=== PATIENT | female | born 1970 | race Caucasian/White ===

== ENCOUNTER 2018-03-21 23:34 | Inpatient (IN) | payer BC ==
[2018-03-21] MEDS ORDERED: KETOROLAC 30 MG/ML INJ ONE (23:56)
[2018-03-21] MEDS ORDERED: ONDANSETRON 4 MG/2 ML VIAL ONE (23:56)
[2018-03-21] MEDS ORDERED: NA CHLORIDE 0.9% 1,000 ML ONE (23:57)
[2018-03-22 00:08] LABS: Absolute Lymphocytes (CBC) 3.6 K/uL (0.7-4.9); Absolute Monocytes 1.3 K/uL (0.1-1.3); Absolute Neutrophil 10.1 K/uL (1.8-8.0); Basophils % 0.4 % (0-1.3); Eosinophils % 1.5 % (0-4.4); Hematocrit 40.5 % (36.0-45.0); Lymphocytes % 23.3 % (15.3-44.8); MCH 29.2 pg (27.0-35.0); MCV 83.6 fL (80-100); MPV 9.4 fL (7.6-11.3); Monocytes % 8.3 % (3.3-12.3); RBC Red Blood Cell Count 4.85 M/uL (3.86-4.86)
[2018-03-22 01:02] LABS: Albumin 3.5 g/dL (3.4-5.0); Bilirubin Direct 0.5 mg/dL (0-0.2); Bilirubin Total 0.7 mg/dL (0.2-1.0); Potassium 3.2 mmol/L (3.5-5.1); Protein, Total 7.6 g/dL (6.4-8.2)
[2018-03-22 01:35] LABS: Urine Bacteria <20 /HPF (<20); Urine Culture Reflex Order NOT NEEDED; Urine Mucus LIGHT /HPF (NONE SEEN); Urine RBC NONE SEEN /HPF (NONE SEEN)
[2018-03-22] MEDS ORDERED: NA CHLORIDE 0.9% 1,000 ML ONE (01:42)
[2018-03-22] MEDS ORDERED: FENTANYL CITR 100 MCG/2 ML ONE (01:42)
[2018-03-22] MEDS ORDERED: KCL 20 MEQ/100 mL IVPB 20 MEQ/100 ML BAG IV ONE (02:31)
[2018-03-22 03:13] LABS: Urine Blood NEGATIVE (NEG); Urine Glucose NEGATIVE (NEG); Urine Protein NEGATIVE (NEG)
--- NOTE | 2018-03-22 03:16 | P.HP ---
Certification for Inpatient Patient admitted to: Inpatient With expected LOS: >2 Midnights Practitioner: I am a practitioner with admitting privileges, knowledge of patient current condition, hospital course, and medical plan of care. Services: Services provided to patient in accordance with Admission requirements found in Title 42 Section 412.3 of the Code of Federal Regulations Patient History Date of Service: 03/22/18 Reason for admission: Acute galstones pancreatitis History of Present Illness: Ms Lewis is a 47-year-old woman with history of hypertension, cholelithiasis, who in December was seen by Dr. Douglas who was planning to do a cholecystectomy, however due to family problems, the surgery was postponed. The patient did not have follow-up in the meantime. Last night she start having severe abdominal pain localizing in the epigastric area radiating to bilateral upper quadrant, 8/ 10 of intensity, associated with nausea vomiting. She denied any fever or chills. Laboratory work significantly abnormal, lipase 440K, leukocytosis, hypokalemia and abnormal liver enzymes. CT abdomen and pelvis is done but the report is pending. Allergies Penicillins Allergy (Verified 12/24/17 09:16) Anaphylaxis Home medications list reviewed: Yes Home Medications: Amlodipine Besylate 10 mg PO [id number] 12/24/17 Metoprolol Succinate [Toprol Xl] 25 mg PO [id number] 12/24/17 - Past Medical/Surgical History -: Hypertension -: Obesity Past Surgical History: Reviewed- Non-Contributory - Family History Family History: Reviewed- Non-Contributory - Social History Smoking Status: Never smoker Alcohol use: No CD- Drugs: No Place of Residence: Home Review of Systems 10-point ROS is otherwise unremarkable Physical Examination - Physical Exam General: Alert, In no apparent distress HEENT: Atraumatic, PERRLA, Mucous membr. moist/pink, EOMI, Sclerae nonicteric Neck: Supple, 2+ carotid pulse no bruit, No LAD, Without JVD or thyroid abnormality Respiratory: Clear to auscultation bilaterally, Normal air movement Cardiovascular: Regular rate/rhythm, Normal S1 S2 Gastrointestinal: Normal bowel sounds, Tenderness (Bilateral upper quadrant) Musculoskeletal: No tenderness Integumentary: No rashes Neurological: Normal speech, Normal strength at 5/5 x4 extr, Normal tone, Normal affect Lymphatics: No axilla or inguinal lymphadenopathy - Studies Laboratory Data (last 24 hrs) 03/21/18 23:55: Creatinine 1.00 03/21/18 23:55: WBC 15.3 H, Hgb 14.2, Hct 40.5, Plt Count 346 03/21/18 23:55: Sodium 140, Potassium 3.2 L, BUN 16, Creatinine 1.10, Glucose 220 H, Total Bilirubin 0.7, AST 179 H, ALT 99 H, Alkaline Phosphatase 237 H, Lipase [id number] H Assessment and Plan - Plan Assessment: 1. Acute pancreatitis 2. Cholelithiasis 3. Cholecystitis 4. Obesity 5. Hypertension Plan: Will keep the patient NPO, start IV fluids and symptomatic medication for pain and nausea, empiric antibiotic treatment. Consult surgery team and GI specialist for ERCP. - Advance Directives Does patient have a Living Will: No Does patient have a Durable POA for Healthcare: No - Code Status/Comfort Care Code Status Assessed: Yes Code Status: Full Code
[2018-03-22] MEDS ORDERED: ACETAMINOPHEN 500 MG TAB PO PRN (03:28)
[2018-03-22] MEDS: NA CHLORIDE 0.9% 1,000 ML IV SCH ×2 (03:28→11:16)
--- NOTE | 2018-03-22 03:39 | ER ---
Nurse's Notes [facility] Name: Margaux Ruiz Age: 47 yrs Sex: Female : 1970 Arrival Date: 03/21/2018 Time: 23:36 Bed 25 Private MD: Brennan Oliver Diagnosis: Acute pancreatitis, unspecified;Cholelithiasis;Hypokalemia Presentation: 03/21 23:49 Presenting complaint: Patient states: Patient states pain to epigastric area that has lp1 worsened; Scheduled to have gallbladder removed by Dr. Douglas back in December but had to postpone surgery. Transition of care: patient was not received from another setting of care. Onset of symptoms was March 21, 2018. Risk Assessment: Do you want to hurt yourself or someone else? Patient reports no desire to harm self or others. Initial Sepsis Screen: Does the patient meet any 2 criteria? No. Patient's initial sepsis screen is negative. Does the patient have a suspected source of infection? No. Patient's initial sepsis screen is negative. Care prior to arrival: None. 23:49 Method Of Arrival: Wheelchair lp1 23:49 Acuity: ROSA 3 lp1 Triage Assessment: 23:51 General: Appears uncomfortable. GI: Pt is actively vomiting. lp1 23:53 Pain: Complains of pain in epigastric area Pain radiates to abdomen. lp1 SERVICES ADVISOR: 23:52 LMP N/A - Post-menopause lp1 Historical: - Allergies: 23:52 PENICILLINS; lp1 - Home Meds: 23:52 amlodipine 10 mg tab 1 tab once daily [Active]; metoprolol tartrate 25 mg Oral tab 1 lp1 tab once daily [Active]; - PMHx: 23:52 Hypertension; lp1 - PSHx: 23:52 ; Tubal ligation; lp1 - Immunization history:: Adult Immunizations up to date. - Social history:: Smoking status: Patient/guardian denies using tobacco. - Ebola Screening: : No symptoms or risks identified at this time. Screenin:52 Abuse screen: Denies threats or abuse. Denies injuries from another. Nutritional lp1 screening: No deficits noted. Tuberculosis screening: No symptoms or risk factors identified. Fall Risk None identified. Assessment: 03/22 00:12 General: Appears in no apparent distress. comfortable, Behavior is calm, cooperative. rv Pain: Complains of pain in abdomen. Neuro: Level of Consciousness is awake, alert, obeys commands, Oriented to person, place, time, situation. Cardiovascular: Capillary refill < 3 seconds. Respiratory: Airway is patent. GI: No signs and/or symptoms were reported involving the gastrointestinal system. GI: Pt is actively vomiting. : No signs and/or symptoms were reported regarding the genitourinary system. EENT: No signs and/or symptoms were reported regarding the EENT system. Derm: Skin is intact. 02:32 Reassessment: Patient appears in no apparent distress at this time. Patient and/or mg2 family updated on plan of care and expected duration. Pain level reassessed. Patient is alert, oriented x 3, equal unlabored respirations, skin warm/dry/pink. patient agreed the admission plan,. Vital Signs: 03/21 23:52 BP 154 / 84; Pulse 75; Resp 18; Temp 98.7(O); Pulse Ox 97% on R/A; Weight 117.93 kg; lp1 Height 5 ft. 2 in. (157.48 cm); Pain 10; 03/22 01:46 BP 160 / 72; Pulse 62; Resp 18; Pulse Ox 100% on R/A; mg2 02:31 BP 154 / 65; Pulse 68; Resp 18; Pulse Ox 100% on R/A; Pain 2/10; mg2 03/21 23:52 Body Mass Index 47.55 (117.93 kg, 157.48 cm) lp1 ED Course: 03/21 23:36 Patient arrived in ED. es 23:37 Brennan Oliver MD is Private Physician. es 23:47 [facility]unice Barillas [facility]C [facility] snw 23:47 Eddy Manuel MD is Attending Physician. snw 23:51 Triage completed. lp1 23:52 Arm band placed on. lp1 23:53 Patient has correct armband on for positive identification. Placed in gown. Bed in low lp1 position. Call light in reach. Pulse ox on. NIBP on. 23:55 Inserted saline lock: 20 gauge in right antecubital area, using aseptic technique. rv 23:56 Phoenix Mendes RN is Primary Nurse. mg2 03/22 01:35 Marcell Paul MD is Hospitalizing Provider. snw 01:[address] via wheelchair. kw1 02:25 CT completed. Patient tolerated procedure well. Patient moved back from CT. kw1 02:32 No provider procedures requiring assistance completed. Patient admitted, IV remains in mg2 place. Administered Medications: 03/21 23:55 Drug: NS 0.9% 1000 ml Route: IV; Rate: 125 ml/hr; Site: right antecubital; rv 03/22 03:14 Follow up: IV Status: Infusion continued upon admission lp1 03/21 23:55 Drug: TORadol 30 mg Route: IVP; Site: left antecubital; rv 03/22 00:59 Follow up: Response: No adverse reaction; Marked relief of symptoms mg2 01:45 Drug: fentaNYL (PF) 50 mcg Route: IVP; Site: right antecubital; mg2 02:30 Follow up: Response: No adverse reaction; Marked relief of symptoms mg2 01:46 Drug: NS 0.9% 1000 ml Route: IV; Rate: 1 bolus; Site: right antecubital; mg2 03:17 Follow up: IV Status: Infusion continued upon admission lp1 02:30 Drug: Potassium Chloride 20 mEq Route: IV; Rate: calculated rate; Site: right mg2 antecubital; 03:15 Follow up: IV Status: Infusion continued upon admission lp1 Outcome: 01:36 Decision to Hospitalize by Provider. snw 03:11 Condition: stable lp1 03:11 Instructed on the need for transfer. 03:16 Admitted to Med/surg via wheelchair, room 215, with chart, Report called to Ebony Santa RN 03:39 Patient left the ED. lp1 Signatures: Eunice Barillas, AIR/OCEAN EXPORT CLERK-C AIR/OCEAN EXPORT CLERK-CsnStephanie Huffman Laura RN RN lp1 Deysi Laguna kw1 Phoenix Mendes RN RN mg2 Akash Jo RN RN rv
--- NOTE | 2018-03-22 03:39 | EDPHYS ---
Physician Documentation [facility] Name: Margaux Ruiz Age: 47 yrs Sex: Female : 1970 Arrival Date: 03/21/2018 Time: 23:36 Bed 25 Private MD: Brennan Oliver ED Physician Eddy Manuel HPI: 03/22 00:07 This 47 yrs old Female presents to ER via Wheelchair with complaints of ABD snw PAIN GB ATTACK. 00:07 Onset: The symptoms/episode began/occurred suddenly, today. Associated signs and snw symptoms: Pertinent positives: abdominal pain, vomiting. The patient has experienced similar episodes in the past. The patient has not recently seen a physician, has seen Dr. Douglas for same s/s in the past. SUPERVISOR CLAIMS: 03/21 23:52 LMP N/A - Post-menopause lp1 Historical: - Allergies: 23:52 PENICILLINS; lp1 - Home Meds: 23:52 amlodipine 10 mg tab 1 tab once daily [Active]; metoprolol tartrate 25 mg Oral tab 1 lp1 tab once daily [Active]; - PMHx: 23:52 Hypertension; lp1 - PSHx: 23:52 ; Tubal ligation; lp1 - Immunization history:: Adult Immunizations up to date. - Social history:: Smoking status: Patient/guardian denies using tobacco. - Ebola Screening: : No symptoms or risks identified at this time. ROS: 03/22 00:06 Constitutional: Negative for fever, chills, and weight loss, Eyes: Negative for injury, snw pain, redness, and discharge, ENT: Negative for injury, pain, and discharge, Neck: Negative for injury, pain, and swelling, Cardiovascular: Negative for chest pain, palpitations, and edema, Respiratory: Negative for shortness of breath, cough, wheezing, and pleuritic chest pain, Abdomen/GI: Positive for abdominal pain, nausea, vomiting, negative for diarrhea, and constipation, Back: Negative for injury and pain, : Negative for injury, bleeding, discharge, and swelling, MS/Extremity: Negative for injury and deformity, Skin: Negative for injury, rash, and discoloration, Neuro: Negative for headache, weakness, numbness, tingling, and seizure, Psych: Negative for depression, anxiety, suicide ideation, homicidal ideation, and hallucinations. Exam: 00:06 Constitutional: This is a well developed, well nourished patient who is awake, alert, snw and in no acute distress. Head/Face: Normocephalic, atraumatic. Eyes: Pupils equal round and reactive to light, extra-ocular motions intact. Lids and lashes normal. Conjunctiva and sclera are non-icteric and not injected. Cornea within normal limits. Periorbital areas with no swelling, redness, or edema. ENT: Nares patent. No nasal discharge, no septal abnormalities noted. Tympanic membranes are normal and external auditory canals are clear. Oropharynx with no redness, swelling, or masses, exudates, or evidence of obstruction, uvula midline. Mucous membranes moist. Neck: Trachea midline, no thyromegaly or masses palpated, and no cervical lymphadenopathy. Supple, full range of motion without nuchal rigidity, or vertebral point tenderness. No Meningismus. Chest/axilla: Normal chest wall appearance and motion. Nontender with no deformity. No lesions are appreciated. Cardiovascular: Regular rate and rhythm with a normal S1 and S2. No gallops, murmurs, or rubs. Normal PMI, no JVD. No pulse deficits. Respiratory: Lungs have equal breath sounds bilaterally, clear to auscultation and percussion. No rales, rhonchi or wheezes noted. No increased work of breathing, no retractions or nasal flaring. Back: No spinal tenderness. No costovertebral tenderness. Full range of motion. Skin: Warm, dry with normal turgor. Normal color with no rashes, no lesions, and no evidence of cellulitis. MS/ Extremity: Pulses equal, no cyanosis. Neurovascular intact. Full, normal range of motion. Neuro: Awake and alert, GCS 15, oriented to person, place, time, and situation. Cranial nerves II-XII grossly intact. Motor strength 5/5 in all extremities. Sensory grossly intact. Cerebellar exam normal. Normal gait. Psych: Awake, alert, with orientation to person, place and time. Behavior, mood, and affect are within normal limits. 00:06 Abdomen/GI: Inspection: obese Bowel sounds: normal, Palpation: moderate abdominal tenderness, in all quadrants. Vital Signs: 03/21 23:52 BP 154 / 84; Pulse 75; Resp 18; Temp 98.7(O); Pulse Ox 97% on R/A; Weight 117.93 kg; lp1 Height 5 ft. 2 in. (157.48 cm); Pain 04/13; 03/22 01:46 BP 160 / 72; Pulse 62; Resp 18; Pulse Ox 100% on R/A; mg2 02:31 BP 154 / 65; Pulse 68; Resp 18; Pulse Ox 100% on R/A; Pain 2/10; mg2 03/21 23:52 Body Mass Index 47.55 (117.93 kg, 157.48 cm) lp1 MDM: 00:02 Patient medically screened. snw 01:34 Data reviewed: vital signs, nurses notes. Data interpreted: Pulse oximetry: on room air snw is 97 %. Interpretation: normal. Counseling: I had a detailed discussion with the patient and/or guardian regarding: the historical points, exam findings, and any diagnostic results supporting the discharge/admit diagnosis, the presence of at least one elevated blood pressure reading (>120/80) during this emergency department visit, lab results, radiology results, the need for further work-up and treatment in the hospital. Physician consultation: Marcell Paul MD. Physician consultation: was called at 01:35, was contacted at 01:35, regarding admission, to the medical/surgical unit. 03/21 23:47 Order name: Basic Metabolic Panel; Complete Time: 01:27 snw 03/21 23:47 Order name: CBC with Diff; Complete Time: 00:12 snw 03/21 23:47 Order name: Creatinine for Radiology; Complete Time: 00:29 snw 03/21 23:47 Order name: Hepatic Function; Complete Time: 01:27 snw 03/21 23:47 Order name: Lipase; Complete Time: 01:27 snw 03/21 23:48 Order name: Urine Microscopic Only; Complete Time: 01:36 snw 03/22 01:22 Order name: Urine Dipstick--Ancillary (enter results) [facility] 03/22 01:22 Order name: Urine --Ancillary (enter results) [facility] 03/22 01:27 Order name: CT Abd/Pelvis - W/Contrast snw 03/21 23:48 Order name: IV Saline Lock; Complete Time: 23:56 snw 03/21 23:48 Order name: Labs collected and sent; Complete Time: 23:56 snw 03/21 23:48 Order name: Urine Dipstick-Ancillary (obtain specimen); Complete Time: 01:00 snw Administered Medications: 03/21 23:55 Drug: NS 0.9% 1000 ml Route: IV; Rate: 125 ml/hr; Site: right antecubital; rv 03/22 03:14 Follow up: IV Status: Infusion continued upon admission lp1 03/21 23:55 Drug: TORadol 30 mg Route: IVP; Site: left antecubital; rv 03/22 00:59 Follow up: Response: No adverse reaction; Marked relief of symptoms mg2 01:45 Drug: fentaNYL (PF) 50 mcg Route: IVP; Site: right antecubital; mg2 02:30 Follow up: Response: No adverse reaction; Marked relief of symptoms mg2 01:46 Drug: NS 0.9% 1000 ml Route: IV; Rate: 1 bolus; Site: right antecubital; mg2 03:17 Follow up: IV Status: Infusion continued upon admission lp1 02:30 Drug: Potassium Chloride 20 mEq Route: IV; Rate: calculated rate; Site: right mg2 antecubital; 03:15 Follow up: IV Status: Infusion continued upon admission lp1 Disposition: 06:07 Co-signature as Attending Physician, Eddy Manuel MD I agree with the assessment and tw4 plan of care. Attestation: The patient's history, exam findings, diagnostics, and a summary of any interventions or procedures was reviewed in detail with Eunice CANTU. Disposition: 03/22/18 01:36 Hospitalization ordered by Marcell Paul for Inpatient Admission. Preliminary diagnosis are Acute pancreatitis, unspecified, Cholelithiasis, Hypokalemia. - Bed requested for Telemetry/MedSurg (Inpatient). - Status is Inpatient Admission. lp1 - Condition is Stable. - Problem is an acute exacerbation. - Symptoms are unchanged. UTI on Admission? No Signatures: Dispatcher [employer] EDCT Shirley Pfeiffer RN RN Eunice Barillas FNP-C FNP-Csnw Shila Yo RN RN [facility] Eddy Manuel MD MD tw4 Phoenix Mendes RN RN [facility] Akash Jo RN RN rv Corrections: (The following items were deleted from the chart) 01:37 01:36 Hospitalization Ordered by Marcell Paul MD for Inpatient Admission. Preliminary snw diagnosis is Acute pancreatitis, unspecified; Cholelithiasis. Bed requested for Telemetry/MedSurg (Inpatient). Status is Inpatient Admission. Condition is Stable. Problem is an acute exacerbation. Symptoms are unchanged. UTI on Admission? No. snw 02:02 01:37 03/22/2018 01:36 Hospitalization Ordered by Marcell Paul MD for Inpatient mw Admission. Preliminary diagnosis is Acute pancreatitis, unspecified; Cholelithiasis; Hypokalemia. Bed requested for Telemetry/MedSurg (Inpatient). Status is Inpatient Admission. Condition is Stable. Problem is an acute exacerbation. Symptoms are unchanged. UTI on Admission? No. snw 03:39 02:02 03/22/2018 01:36 Hospitalization Ordered by Marcell Paul MD for Inpatient lp1 Admission. Preliminary diagnosis is Acute pancreatitis, unspecified; Cholelithiasis; Hypokalemia. Bed requested for Telemetry/MedSurg (Inpatient). Status is Inpatient Admission. Condition is Stable. Problem is an acute exacerbation. Symptoms are unchanged. UTI on Admission? No. mw
[2018-03-22] MEDS: ONDANSETRON 4 MG/2 ML VIAL IV PRN ×2 (04:16→10:13)
[2018-03-22] MEDS: KETOROLAC 30 MG/ML INJ IV PRN ×2 (05:51→14:37)
[2018-03-22 06:13] LABS: Urine Appearance CLEAR; Urine Bilirubin NEGATIVE (NEG); Urine Blood NEGATIVE (NEG); Urine Color YELLOW; Urine Glucose NEGATIVE (NEG); Urine Microscopic Reflex NO UMIC; Urine Protein NEGATIVE (NEG); Urine Specific Gravity >=1.030 (1.005-1.030); Urine pH 7.5 (5.0-7.0)
--- NOTE | 2018-03-22 08:36 | RAD REPORT ---
EXAM DESCRIPTION: CT - Abdomen Pelvis W Contrast - 03/22/2018 5:49 am CLINICAL HISTORY: Abdominal pain/epigastric pain COMPARISON: none. TECHNIQUE: Computed axial tomography of the abdomen pelvis was obtained. 100 cc Isovue-300 was admin istered intravenously. Oral contrast was not requested which limits evaluation of bowel. Preliminary report was generated by [email or web address] and reviewed prior to this dictation All CT scans are performed using dose optimization technique as appropriate and may include automated exposure control or mA/KV adjustment according to patient size. FINDINGS: Multiple gallstones are present without gallbladder wall thickening. Pancreas is normal size. It is inhomogeneous. Stranding is present within the peripancreatic fat. Sma ll to moderate amount of fluid is present within the anterior pararenal spaces bilaterally. A pseudoc yst is not seen. Spleen, adrenals and right kidney are unremarkable. 5 millimeter nonobstructing left renal calculus is seen. The appendix is normal. There is no evidence of diverticulitis. An adnexal mass is not noted. Small umbilical hernia is present. There is no evidence of diverticulitis. IMPRESSION: Moderate pancreatitis
[2018-03-22] MEDS ORDERED: METRONIDAZOLE 500mg IVPB 500 MG/100 ML BAG IV SCH (09:00)
[2018-03-22] MEDS ORDERED: CIPROFLOXACIN 400mg IV 400 MG/200 ML BAG IV SCH (09:00)
[2018-03-22 09:03] LABS: Potassium 4.7 mmol/L (3.5-5.1)
--- NOTE | 2018-03-22 09:08 | RAD REPORT ---
EXAM DESCRIPTION: MRICholangiogram03/22/2018 7:57 am CLINICAL HISTORY: Abdominal pain COMPARISON: 03/22/2018 cat scan TECHNIQUE: Magnetic resonance cholangiogram was performed. 3D MIP reconstruction was performed FINDINGS: Multiple gallstones are present. The gallbladder wall is thickened. The biliary tree is normal caliber without a filling defect. Moderate pancreatitis is again noted. The pancreatic duct is normal caliber IMPRESSION: Cholelithiasis without evidence of cholecystitis A stone within the common bile duct is not seen
[2018-03-22] MEDS ORDERED: MORPHINE 2 MG/ML SYR IV PRN (09:29)
[2018-03-22] MEDS ORDERED: HYDRALAZINE HCL 20 MG/ML VIAL IV PRN (10:26)
--- NOTE | 2018-03-22 13:27 | P.DS ---
Admission Date: 03/22/18 Discharge Date: 03/22/18 Primary Care Provider: Dr. Oliver Disposition: TRANSFER TO [facility] Discharge Condition: GOOD Reason for Admission: Acute gallstone pancreatitis Consultations: Surgery-Dr. Douglas GI-Dr. Heaton Procedures: CT scan: COMPARISON: none. TECHNIQUE: Computed axial tomography of the abdomen pelvis was obtained. 100 cc Isovue-300 was administered intravenously. Oral contrast was not requested which limits evaluation of bowel. Preliminary report was generated by [employer] and reviewed prior to this dictation All CT scans are performed using dose optimization technique as appropriate and may include automated exposure control or mA/KV adjustment according to patient size. FINDINGS: Multiple gallstones are present without gallbladder wall thickening. Pancreas is normal size. It is inhomogeneous. Stranding is present within the peripancreatic fat. Small to moderate amount of fluid is present within the anterior pararenal spaces bilaterally. A pseudocyst is not seen. Spleen, adrenals and right kidney are unremarkable. 5 millimeter nonobstructing left renal calculus is seen. The appendix is normal. There is no evidence of diverticulitis. An adnexal mass is not noted. Small umbilical hernia is present. There is no evidence of diverticulitis. IMPRESSION: Moderate pancreatitis MRCP: COMPARISON: 03/22/2018 cat scan TECHNIQUE: Magnetic resonance cholangiogram was performed. 3D MIP reconstruction was performed FINDINGS: Multiple gallstones are present. The gallbladder wall is thickened. The biliary tree is normal caliber without a filling defect. Moderate pancreatitis is again noted. The pancreatic duct is normal caliber IMPRESSION: Cholelithiasis without evidence of cholecystitis A stone within the common bile duct is not seen Medical problem list: Abdominal pain, nausea and vomiting secondary to gallstone pancreatitis Elevated liver function secondary to above Hypertension Hypokalemia Acute renal injury secondary to Dehydration Brief History of Present Illness: 47-year-old female presented emergency room with abdominal pain mainly to the right upper quadrant and epigastric region with nausea and vomiting. Patient has history of cholelithiasis. She was to have an outpatient cholecystectomy about a month ago. She was not able to follow up with surgery due to family circumstances. The patient presented to the emergency room with increasing pain. Patient found to have elevated liver function tests including lipase of [id number]. Patient was admitted for suspected gallstone pancreatitis. Hospital Course: Patient presented with abdominal pain, nausea and vomiting secondary to gallstone pancreatitis. Patient was evaluated and treated. Patient seen by surgery and GI. CT abdomen showed multiple gallstones. Stranding present to the kryee pancreatic fat. Small moderate fluid was present to the anterior para renal space is bilaterally. Appendix was normal. No diverticulitis. MRCP showed cholelithiasis without cholecystitis. Patient had elevated lipase with elevated liver function. Case discussed at length with surgery and GI. Surgery requires ERCP for further evaluation. Since GI is not able to proceed with ERCP here locally, it was recommended to transfer the patient to a higher level of care center. Case discussed at length with accepting physicians( Hospitalist/GI) at [facility]. Patient accepted for transfer. Patient will continue with current IV fluids and pain control. Patient be further assessed by GI with possible surgical intervention. Patient with hypertension. Will continue with hydralazine IV at this time. Patient with acute renal injury secondary to dehydration. Will continue with IV fluids. Electrolytes to be monitored and replaced. Vital Signs/Physical Exam: Temp Pulse Resp BP Pulse Ox 97.7 F 78 18 188/88 H 95 03/22/18 08:00 03/22/18 08:00 03/22/18 08:00 03/22/18 08:00 03/22/18 08:00 General: Alert, In no apparent distress, Oriented x3, Cooperative HEENT: Atraumatic Neck: Supple Respiratory: Clear to auscultation bilaterally, Normal air movement Cardiovascular: Normal pulses, Regular rate/rhythm Gastrointestinal: Normal bowel sounds, No masses, No rebound, No guarding, Tenderness (Right upper quadrant abdominal pain) Musculoskeletal: No erythema, No tenderness, No warmth Integumentary: No erythema, No warmth, No cyanosis Neurological: Normal speech, Normal strength at 5/5 x4 extr, Normal tone, Normal affect Laboratory Data at Discharge: WBC 15.3 K/uL (4.3-10.9) H 03/21/18 23:55 Hgb 14.2 g/dL (12.0-15.0) 03/21/18 23:55 Hct 40.5 % (36.0-45.0) 03/21/18 23:55 Plt Count 346 K/uL (152-406) 03/21/18 23:55 Sodium 140 mmol/L (136-145) 03/21/18 23:55 Potassium 4.7 mmol/L (3.5-5.1) 03/22/18 08:32 BUN 16 mg/dL (7-18) 03/21/18 23:55 Creatinine 1.10 mg/dL (0.55-1.3) 03/21/18 23:55 Glucose 220 mg/dL (74-106) H 03/21/18 23:55 Magnesium 2.0 mg/dL (1.8-2.4) 03/22/18 08:32 Total Bilirubin 0.7 mg/dL (0.2-1.0) 03/21/18 23:55 AST 179 U/L (15-37) H 03/21/18 23:55 ALT 99 U/L (12-78) H 03/21/18 23:55 Alkaline Phosphatase 237 U/L (45-117) H 03/21/18 23:55 Lipase 126242 U/L (73-393) H 03/21/18 23:55 Home Medications: Amlodipine Besylate 10 mg PO DAILY 12/24/17 Metoprolol Succinate [Toprol Xl] 25 mg PO DAILY 12/24/17 Patient Discharge Instructions: 1. Patient be transferred to [facility]. 2. Patient presented with abdominal pain, nausea and vomiting secondary to gallstone pancreatitis. Patient was evaluated and treated. Patient seen by surgery and GI. CT abdomen showed multiple gallstones. Stranding present to the kyree pancreatic fat. Small moderate fluid was present to the anterior para renal space is bilaterally. Appendix was normal. No diverticulitis. MRCP showed cholelithiasis without cholecystitis. Patient had elevated lipase with elevated liver function. Case discussed at length with surgery and GI. Surgery requires ERCP for further evaluation. Since GI is not able to proceed with ERCP here locally, it was recommended to transfer the patient to a higher level of care center. Case discussed at length with accepting physicians(Hospitalist/GI) at [facility]. Patient accepted for transfer. Patient will continue with current IV fluids and pain control. Patient be further assessed by GI with possible surgical intervention. 3. Patient with hypertension. Will continue with hydralazine IV at this time. 4. Patient with acute renal injury secondary to dehydration. Will continue with IV fluids. Electrolytes to be monitored and replaced. Diet: Patient NPO Activity: Ad john Time spent managing pt's care (in minutes): 55
--- NOTE | 2018-03-22 13:58 | CON ---
Date of Consultation: 03/22/2018 Brief History Of Present Illness: The patient is a 47-year-old female known to me from prior admissi on, who presents with a history of cholelithiasis. She was advised to have a cholecystectomy prior, but did not follow up for this procedure at that time and has been noncompliant with diet, eating Swe dish meat balls last evening and having sodas and being noncompliant with the gallbladder diet as rec ommended. She had no followup since my last seeing her approximately 3 months ago. She started havi ng severe abdominal pain located in the epigastric area, radiating through to her back and upper bila teral quadrants associated with nausea, vomiting. She had no fever, chills, or other associated comp laints. This felt similar to her last abdominal pain episode approximately 3 months ago. Only her p ain was significantly worse by her report. Past Medical History: Significant for hypertension, cholelithiasis, obesity. Past Surgical History: Significant for tubal ligation and . Allergies: PENICILLIN. Home Medications: Amlodipine, metoprolol. Social History: She denies smoking, alcohol, or recreational drug use. Review of Systems: A 10-point review of systems other than HPI, denies. Physical Examination: General: At the time of my examination, she is awake, alert, and oriented. HEENT: She is normocephalic. Her sclerae are anicteric. Her mucous membranes are moist. Oropharyn x is clear. She has poor dentition. Neck: Supple. No JVD. Chest: Normal expansion, excursion. Cardiovascular: Regular rate and rhythm. Pulmonary: Clear to auscultation bilaterally. Abdomen: Soft with positive epigastric and bilateral upper quadrant tenderness to palpation. No le ound. No guarding. No focal peritonitis. No Yuen Hdez or Girish signs. Negative Taylor sign. Extremities: No clubbing, cyanosis, edema, or tenderness. Integument: No rashes. Neurological: Normal speech. Skin: Warm and dry otherwise. Laboratory Data: Reveals a white blood cell count of 15.3, hemoglobin is 14.2 hematocrit of 40.5, ne utrophils normal at 66%, her platelets are 346. Her sodium is 140, potassium 4.7, chloride 107, carb on dioxide 28, BUN 16, creatinine 1.0, glucose is 220, magnesium 2.0, total bilirubin 0.7, direct com ponent 0.5, AST 179, ALT 99, alkaline phosphatase is elevated at 237. Lipase is 440,671. UA was neg ative including urine test. She had a CT scan performed of the abdomen and pelvis, which s howed evidence of acute pancreatitis, moderate-type pancreatitis. No pseudocyst noted. Gallbladder had stones. Otherwise, no significant findings to the gallbladder examination on imaging. There was no gallbladder wall thickening at that time. Assessment And Plan: This is a 47-year-old female who presents with evidence of pancreatitis, likely from gallstone pancreatitis. 1.IV fluid hydration. 2.Antibiotic coverage. 3.N.p.o. 4.Recommend GI consult. 5.MRCP ordered. 6.The patient requires cholecystectomy after pancreatitis resolves. I have explained the risks, cristal efits, alternatives of the above stated plan. The patient agrees to proceed as indicated. JAIME/JOVI Voice ID: [id number] Report ID: [id number]
== END 2018-03-22 15:25 | disposition short-term general hospital (02) | DRG 439 ==
LOC: ER 23:34 → ERHOLD 03-22 01:39 → 2ND 03-22 03:06
PROVIDERS: ADMIT Internal Medicine; ATTEND Internal Medicine
DX: K85.10 Biliary acute pancreatitis without necrosis or infection (principal); N17.9 Acute kidney failure, unspecified; E86.0 Dehydration; E87.6 Hypokalemia; I10 Essential (primary) hypertension; Z88.0 Allergy status to penicillin
CPT/HCPCS: 36415; 74177; 74181; 80048; 80076; 81003; 81015; 81025; 83690; 83735; 84132; 85025; 99285; J0360; J2270; J2405; J3010; J7030; Q9967

== ENCOUNTER 2023-04-30 11:58 | Emergency (ER) | payer BC ==
--- OUTSIDE RECORDS SUMMARY | 2023-04-30 12:04 | XMS REPORT | Continuity of Care Document ---
:1970 Author Organization [facility] t Address [address] [place] [address] [place] [id number] Care Team Providers Name Role Phone Oliver Brennan A Primary Care Physician Lab, Adc Fam Pob I Attending Clinician Unavailable Cindy Bee Attending Clinician CINDY PROCTOR Attending Clinician Unavailable Doctor Unassigned, [place] Attending Clinician Unavailable CARLOS DAVIS M.D. Attending Clinician Unavailable [facility] Attending Clinician Unavailable Betty Brush Attending Clinician NORMA SANABRIA Attending Clinician Unavailable Betty Brush Admitting Clinician NORMA SANABRIA Admitting Clinician Unavailable Payers Payer Name Policy Type Policy Number Effective Date Expiration Date S ource Problems Condition Condition Condition Status Onset Resolution Last Treating Co mments Source Name Details Category Date Date Treatment Clinician Date 2 WK POST 2 WK POST Diagnosis Active 2017-072018-05-13 Memoria PROCEDURE PROCEDURE 0- 15:36:00 l F/U F/U Active 00:00: Luca poole [address] [facility] F/U F/U Diagnosis Active 2017-072018-04-21 Mem oria Active 0 15:24:00 l 04/12/2018 00:00: Luca poole [address] R06.00 R06.00 Diagnosis Active 2018-04-21 Me moria DYSPNEA DYSPNEA 03-31 15:23:00 l Active 00:00: Jose 03/31/[address] [facility] NEW NEW Diagnosis Active 2017-2018-04-08 Mem oria PT/SWELLIN PT/SWELLIN 03-28 14:37:00 l G G 00:00: Jose EXTREMITIE EXTREMITIE 00 S/SELF S/SELF Active 03/28/2018 [facility] Acute Acute Disease Active [facility] pancreatit pancreatit 03-23 Joselin kes is due to is due to 00:00: Medi altaf calculus calculus 00 [facility] of common of common bile duct bile duct Dyspnea, Dyspnea, Problem 2018-12-01 Memoria unspecifie unspecifie 11:08:51 l d d Jose 12/01/2018 [facility] Acute Acute Problem 2018-12-01 Memor ia pancreatit pancreatit 11:08:51 l is without is without He rmann necrosis necrosis or or infection, infection, unspecifie unspecifie d d 12/01/2018 [facility] Chronic Chronic Problem 2018-11-08 M emoria periodonti periodonti 12:19:12 l tis, tis, [place] unspecifie unspecifie d d 11/08/2018 [facility] Nicotine Nicotine Problem 2018-11-08 Memoria dependence dependence 12:19:12 l , , Jose cigarettes cigarettes , , uncomplica uncomplica guanako guanako 11/08/2018 [facility] Personal Personal Problem 2018-12-01 Memoria history of history of 11:08:51 l nicotine nicotine Luca n dependence dependence 9 [facility], [place] Other Other Problem 2018-11-07 Memor ia chest pain chest pain 11:54:11 l 11/07/2018 Luca n [place] Unspecifie Unspecifi Problem 2018-11-07 Memoria d ed 11:54:11 l abnormalit abnormalit He rmann ies of ies of breathing breathing 11/07/2018 [place] Other Other Problem 2018-12-01 Memor ia specified specified 11:08:51 l soft soft [place] tissue tissue disorders disorders 12/01/2018 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 Allergy Allergy Problem 2018-10-16 Me ivania status to status to 13:42:33 l penicillin penicillin He rmann 9 [facility] Other long Other Problem 2018-11-15 M emoria term fdc 12:40:33 l (current) (current) Herm sunny drug drug therapy therapy 11/15/2018 [place] Disease of Disease Problem Active 2018-12-01 Memoria vein of vein 11:08:51 l (disorder) (disorder) He rmann Active Problem 12/01/2018 [facility], OPID [place] Dyspnea Dyspnea Problem Active 2018-12-01 Me ivania (finding) (finding) 11:08:51 l Active Jose Problem 12/01/2018 [facility], OPID [place] Hypertensi Hypertens Problem Active 2018-12-01 Memoria ve todd 11:08:51 l disorder, disorder, Herm sunny systemic systemic arterial arterial (disorder) (disorder) Active Problem 12/01/2018 [facility], [facility] [place] Pancreatit Pancreati Problem Active 2018-12-01 Memoria is tis 11:08:51 l (disorder) (disorder) He rmann Active Problem 12/01/2018 [facility], OPID [place] Periodonti Periodont Problem Active 2018-12-01 Memoria tis itis 11:08:51 l (disorder) (disorder) He rmann Active Problem 12/01/2018 [facility], OPID [place] Blood Blood Problem Active [facility] clotting clotting HL7.CCDAR2 Ph ysici disorder disorder ans Pain and Pain and Problem Active [facility] swelling swelling HL7.CCDAR2 Ph ysici of right of right ans lower lower extremity extremity Chronic Chronic Problem Active [facility] venous venous HL7.CCDAR2 Physic i insufficie insufficie an s ncy ncy History of Past Illness Condition Condition Condition Status Onset Resolution Last Treating Co mments Source Name Details Category Date Date Treatment Clinician Date Essential Essential Problem 2017-2018-12-01 2018-12-01 Memoria (primary) (primary) 1-16 11:08:51 11:08:51 l hypertensi hypertensi 04:34: He rmann on on 05/20/2018 12/01/2018 [facility], [place] Abnormal Abnormal Problem 2017-072018-11-15 2018-11-15 Memoria result of result of 07-05 12:40:33 12:40:33 l other other 04:15: Jose cardiovasc cardiovasc 11 bethany ular function function study study 05/05/2018 05/ 9 [place] Other Other Problem 2017-072018-11-08 2018-11-08 M emoria forms of forms of 024 12:19:12 12:19:12 l dyspnea dyspnea 03:35: Jose 04/27/2018 29 11/08/2018 [facility] Shortness Shortness Problem 2017-072018-11-07 2018-11-07 Memoria of breath of breath 0- 11:54:11 11:54:11 l 04/24/2018 02:46: Luca n 11/07/2018 43 [place] Edema, Edema, Problem 2017-072018-10-26 2018-10-26 Memoria unspecifie unspecifie 0-11 12:36:42 12:36:42 l d d 05:06: Jose 04/14/2018 07 10/26/2018 [facility], OPID [place] Allergies, Adverse Reactions, Alerts Allergy Allergy Status Severity Reaction(s) Onset Inactive Treating Comm ents Source Name Type Date Date Clinician Penicill Drug Active [facility] [place] penicill penicill Active Joshori a in in l Jose NO KNOWN Drug Active [facility] ALLERGIE Class ity of S [facility] Social History Social Habit Start Date Stop Date Quantity Comments Source Exposure to Not sure [facility] SARS-CoV-2 (event) Medica l Branch Social History 2018-03-29 2018-03-29 [facility] josefa 16:27:23 16:27:23 Sex Assigned At [address] Joselin kes Medical 00:00:00 00:00:00 [place] Smoking Status Start Date Stop Date Source Unknown if ever smoked [facility] Medications Ordered Filled Start Stop Current Ordering Indication Dosage Frequency Signature Comments Components Source Medication Medication Date Date Medication? Clinician (SIG) Name Name Sodium 2017-07 No 250 mL, Memoria Chloride 0-25 Infuse l 0.9% 17:00: Over: 1 [place] (Bolus) IV 00 hr, Route: IV, ONCALL, Priority: Routine, Dosing Weight 113.182 kg, Start date: 04/28/18 12:00:00 CDT, Duration: 1 doses or times Sodium 2017-07 No 750 mL, Memoria Chloride 0-25 Rate: 75 l 0.9% IV 750 16:22: ml/hr, Herm sunny mL 00 Infuse over: 10 hr, Route: IV, Dosing Weight 113.182 kg, Total Volume: 750, Start date: 04/28/18 11:22:00 CDT, Duration: 24 hr, Stop date: 04/29/18 11:21:00 CDT, 2.29, m2 ondansetron No 4 mg = 1 Me moria 4 mg oral 9-25 tab, PO, l tablet 16:27: PRN, PRN Jose 00 Nausea, # 3 tab, 0 Refill(s) acetaminoph No 1 tab =, Me moria en-codeine 9-25 PO, l #3 16:27: Bedtime, Jose 00 PRN Pain, # 30 tab, 0 Refill(s) amLODIPine Yes 10 mg = 1 Me moria 10 mg oral 9-25 tab, PO, l tablet 16:27: Daily, # [place] 00 90 tab, 1 Refill(s) Ciprofloxac No 500 mg = 1 Memoria in 500 MG 9-25 tab, PO, l Oral Tablet 16:27: Q12H, # 14 [place] [Cipro] 00 tab, 0 Refill(s) metoprolol Yes 0 Memoria succinate 9-25 Refill(s) l 25 mg oral 16:27: [place] capsule, 00 extended release Metronidazo No 500 mg = 1 Memoria le 500 MG 9-25 tab, PO, l Oral Tablet 16:27: Q8H, # 21 H ermann 00 tab, 0 Refill(s) metoprolol Yes 25mg QD Take [address] (TOPROL-XL) 9-22 by mouth Luke s 25 MG 24 hr 16:42: daily. Medi altaf tablet 50 Center amLODIPine 2018-0 Yes 10mg QD Take [address] (NORVASC) 9-22 by mouth [facility] 10 MG 16:42: daily. Medical tablet 50 Center Vital Signs Vital Name Observation Time Observation Value Comments Source BP Systolic 2018-06-20 140 mm[Hg] Location: [facility] Physicians 11:28:00 Position: Sitting BP Diastolic 2018-06-20 80 mm[Hg] Location: [facility] Physicians 11:28:00 Position: Sitting Heart Rate 2018-06-20 88 /min Location: L [facility] 11:28:00 Brachial Artery; Quality: Normal Weight 2018-05-13 [facility] Luca n 21:46:00 BMI Calculated 2018-05-13 [facility] sunny 21:46:00 Height 2018-05-13 157.48 cm [facility] Luca n 21:46:00 Heart Rate 2018-05-13 [facility] Luca n 21:46:00 Systolic (mm Hg) 2018-05-13 [facility] He rmann 21:46:00 Diastolic (mm Hg) 2018-05-13 [facility] H ermann 21:46:00 Temperature Oral 2018-05-13 97.0 F [facility] He rmann (F) 21:46:00 BMI Calculated 2018-04-28 [facility] sunny 15:26:00 Weight 2018-04-28 [facility] Luca n 15:26:00 Height 2018-04-28 160.02 cm [facility] Luca n 15:26:00 Respitory Rate 2018-04-28 [facility] sunny 15:12:00 Heart Rate 2018-04-28 [facility] Luca n 15:12:00 Temperature Oral 2018-04-28 97.6 F [facility] He rmann (F) 15:12:00 Systolic (mm Hg) 2018-04-28 [facility] rmann 15:12:00 Diastolic (mm Hg) 2018-04-28 [facility] H ermann 15:12:00 Diastolic (mm Hg) 2018-04-21 [facility] H ermann 20:38:00 Weight 2018-04-21 [facility] Luca n 20:38:00 Height 2018-04-21 157.48 cm [facility] Luca n 20:38:00 BMI Calculated 2018-04-21 [facility] sunny 20:38:00 Heart Rate 2018-04-21 [facility] Luca n 20:38:00 Temperature Oral 2018-04-21 97.1 F [facility] He rmann (F) 20:38:00 Systolic (mm Hg) 2018-04-21 [facility] Rohit rmann 20:38:00 Weight 2018-03-29 Maurilio Segovia n 16:25:00 BMI Calculated 2018-03-29 Maurilio Armas sunny 16:25:00 Height 2018-03-29 157.48 cm Maurilio Segovia n 16:25:00 Heart Rate 2018-03-29 Maurilio Segovia n 16:25:00 Temperature Oral 2018-03-29 97.4 F [facility] Rohit rmann (F) 16:25:00 Systolic (mm Hg) 2018-03-29 [facility] He rmann 16:25:00 Diastolic (mm Hg) 2018-03-29 [facility] Riaz ermann 16:25:00 Procedures Procedure Date / Time Performing Clinician Source Performed ASSIGNMENT OF BENEFITS 2021-02-02 16:26:04 [facility] Antithrombin III 2018-07-11 00:00:00 [facility] Antigen [H] Factor V Assay 2018-07-11 00:00:00 [facility] [LH] Factor V Leiden 2018-07-11 00:00:00 [facility] [QL] ANTIPHOSPHOLIPID 2018-07-11 00:00:00 [facility] ANTIBODY PANEL [QLH] CBC (INCLUDES 2018-07-11 00:00:00 [facility] DIFF/PLT) [QLH] C-REACTIVE PROTEIN 2018-07-11 00:00:00 [facility] [QLH] PROTEIN S, ANTIGEN 2018-07-11 00:00:00 [facility] [QLH] PROTHROMBIN TIME-INR 2018-07-11 00:00:00 [facility] CVRAD - Bilateral Lower 2018-06-20 00:00:00 [facility] Cornelio Lmt - [id number] Encounters Start End Encounter Admission Attending Care Care Encounter Source Date/Time Date/Time Type Type Clinicians Facility Department ID 2021-02-02 2021-02-02 Laboratory Lab, Adc Fam Pob I [facility] [id number]. [id number] [facility] 11:26:18 11:46:18 Only [employer] [id number] [facility]y of [place] [id number] Kermit as Professio [id number] Wy dical nal [address] 2021-02-02 2021-02-02 Outpatient R ESTHELA, [facility] [id number] Univers 11:20:00 11:20:00 CINDY ity of [facility] 2021-02-02 2021-02-02 Orders Doctor MIRA [id number] Univers 00:00:00 00:00:00 Only Unassigned, YESSI [id number] [facility] [id number] Kermit as [id number] [address] 2018-07-11 2018-07-11 App[id number] [place] 09:00:00 09:00:00 t; CARLOS DAVIS cic and Tiago GONZALEZ M.D. Vascular kush [facility] 2018-06-20 2018-06-20 Appointmen VASCULAR, [facility] [id number] [place] 10:30:00 10:30:00 t; [facility] VASCULAR, ans [facility] 2018-06-20 2018-06-20 Appointmen SUSAN, SANDRA [facility] [id number] [place] 09:45:00 09:45:00 t; CARLOS DAVIS, Lluvia Levy M.D. 2018-05-13 2018-05-14 Outpatient nullFlavo [id number] Memoria 21:29:00 05:59:00 r Shaunna 05 l [facility] 2018-05-13 2018-05-13 Outpatient Bre [facility] [id number] 15:29:00 23:59:00 ghe, 05 Betty Webb 2018-04-28 2018-04-28 [facility] [id number] Memoria 14:06:45 18:41:00 [facility] r [facility] 2018-04-28 2018-04-28 Outpatient Bre [facility] [id number] 09:06:45 13:41:00 ghe, 04 Betty Webb 2018-04-21 2018-04-22 Outpatient nullFlavo [id number] Memoria 20:20:00 04:59:00 r Community 03 l Cardiology Tonia nn [place] 2018-04-21 2018-04-21 Outpatient Wickramasin [facility] [id number] 15:20:00 23:59:00 ghe, 03 Betty Palmaika 2018-04-20 2018-04-21 Outpatient nullFlavo [facility] [id number] Memoria 13:19:00 04:59:00 r Jose 01 l [place] Tonia 2018-04-20 2018-04-20 Outpatient Wickramasin [facility] [id number] 08:19:00 23:59:00 ghe, 01 [facility] 2018-04-08 2018-04-09 Outpatient nullFlavo [id number] Memoria 19:34:00 04:59:00 r Community 02 l Cardiology Tonia nn [place] 2018-04-08 2018-04-09 Outpt Diag nullFlavo [facility] [id number] Memoria 18:40:00 04:59:00 Services r Outpatient 00 l Imaging Jose [place] 2018-04-08 2018-04-08 Outpatient Wickramsendy [facility] [id number] 14:34:00 23:59:00 ghe, 02 [facility] 2018-04-08 2018-04-08 Outpatient Uttalharamsendy [place] [id number] 13:40:00 23:59:00 ghe, 00 [facility] 2018-03-29 2018-03-30 Outpatient nullFlavo [id number] Memoria 16:00:00 04:59:00 r Community 00 l Cardiology Tonia nn [place] 2018-03-29 2018-03-29 Outpatient Wickramasin [facility] [id number] 11:00:00 23:59:00 ghe, 00 Betty Webb Results Test Description Test Time Test Comments Results Result Comments Source HEMATOLOGY 2018-04-28 15:27:00 Test Item Value Reference Range Interpretation Comme nts RBC (test code = RBC) 4.64 4.20-5.40 [facility]LuzarybGEBBHGBXMJ8611-21-16 15:27:00 Test Item Value Reference Range Interpretation Comments WBC (test code = WBC) 7.0 3.7-10.4 [facility] HospitalChqofvqKMYQYDNSRC3863-88-77 15:27:00 Test Item Value Reference Range Interpretation Comments MCH (test code = MCH) 28.4 pg 27.0-31.0 [facility] HospitalOlnyctxSGPILMOWVJ2778-27-88 15:27:00 Test Item Value Reference Range Interpretation Comments MCHC (test code = MCHC) 33.7 32.0-36.0 [facility] HospitalBxolsgdYFDMFRKVJX1153-23-43 15:27:00 Test Item Value Reference Range Interpretation Comments RDW (test code = RDW) 14.4 11.5-14.5 [facility] HospitalSkdxhuuFYYSAOSPEK2280-51-67 15:27:00 Test Item Value Reference Range Interpretation Comments Hct (test code = Hct) 39.1 36.0-48.0 [facility] HospitalYmgzossFKKQNKJQIS1364-87-23 15:27:00 Test Item Value Reference Range Interpretation Comments Hgb (test code = Hgb) 13.2 12.0-16.0 [facility] HospitalYwblpktFVULLPIWCU9258-29-10 15:27:00 Test Item Value Reference Range Interpretation Comments MCV (test code = MCV) 84.2 80.0-98.0 [facility] HospitalJbqipasIQTGUAYRNZ0233-46-81 15:27:00 Test Item Value Reference Range Interpretation Comments Eosinophils # (test code = Eosinophils 0.2 <=0.5 #) [facility] H[id number] 15:27:00 Test Item Value Reference Range Interpretation Comments Neutrophils # (test code = Neutrophils 4.6 1.5-8.1 #) [facility] HospitalBdxaiicALYIASLFGC0017-11-14 15:27:00 Test Item Value Reference Range Interpretation Comments Lymphocytes # (test code = Lymphocytes 1.8 1.0-5.5 #) [facility] HospitalYdrlyveSATONEPAES7804-73-09 15:27:00 Test Item Value Reference Range Interpretation Comments Basophils # (test code = Basophils #) 0.0 <=0.2 [facility] Ho[id number] 15:27:00 Test Item Value Reference Range Interpretation Comments Segs (test code = Segs) 64.8 45.0-75.0 [facility] HospitalFyoemqgRHIRVISNSF5432-36-19 15:27:00 Test Item Value Reference Range Interpretation Comments Monocytes (test code = Monocytes) 7.0 2.0-12.0 [place] [id number] 15:27:00 Test Item Value Reference Range Interpretation Comments Basophils (test code = Basophils) 0.3 <=1.0 [facility] HospitalXfglqvmULWQBOCFAB0840-67-84 15:27:00 Test Item Value Reference Range Interpretation Comments Eosinophils (test code = Eosinophils) 2.6 <=4.0 [facility] HospitalToricgdAETIDMRERM2053-54-32 15:27:00 Test Item Value Reference Range Interpretation Comments Lymphocytes (test code = Lymphocytes) 25.3 20.0-40.0 [facility] HospitalJfwvhwkGBWGDWADOF7064-89-71 15:27:00 Test Item Value Reference Range Interpretation Comments Monocytes # (test code = Monocytes #) 0.5 <=0.8 [facility] HospitalUcmmokrWVDINPYFYJ9765-84-16 15:27:00 Test Item Value Reference Range Interpretation Comments MPV (test code = MPV) 10.1 7.4-10.4 [facility] HospitalMptgxwfNHYBSTOCKK9605-49-55 15:27:00 Test Item Value Reference Range Interpretation Comments Platelet (test code = Platelet) 284 133-450 [facility]2018-10-25 14:24:00 Test Item Value Reference Range Interpretation Comments eGFR (test code = eGFR) 104 [facility]2018-10-25 14:24:00 Test Item Value Reference Range Interpretation Comments Sodium Lvl (test code = Sodium Lvl) 140 135-145 [facility]2018-10-25 14:24:00 Test Item Value Reference Range Interpretation Comments Creatinine Lvl (test code = Creatinine 0.66 0.50-1.40 Lvl) [facility]2018-10-25 14:24:00 Test Item Value Reference Range Interpretation Comments BUN (test code = BUN) 9 7-22 [facility]2018-10-25 14:24:00 Test Item Value Reference Range Interpretation Comments Chloride Lvl (test code = Chloride Lvl) 108 95-109 [facility]2018-10-25 14:24:00 Test Item Value Reference Range Interpretation Comments CO2 (test code = CO2) 22 24-32 [facility]2018-10-25 14:24:00 Test Item Value Reference Range Interpretation Comments Potassium Lvl (test code = Potassium 4.5 3.5-5.1 Lvl) [facility]2018-10-25 14:24:00 Test Item Value Reference Range Interpretation Comments Glucose Lvl (test code = Glucose Lvl) 109 70-99 [facility] [id number] 14:24:00 Test Item Value Reference Range Interpretation Comments Calcium Lvl (test code = Calcium Lvl) 8.5 8.5-10.5 [facility] [id number] 14:24:00 Test Item Value Reference Range Interpretation Comments AGAP (test code = AGAP) 14.5 10.0-20.0 [facility]15 14:24:00 Test Item Value Reference Range Interpretation Comments PT (test code = PT) 12.2 s 12.0-14.7 [facility]XckvlfuDEVDLLQLZD5966-05-24 14:24:00 Test Item Value Reference Range Interpretation Comments INR (test code = INR) 0.91 1 0.85-1.17 [facility] OaklandCtfaithWPOFUVKMQR2178-60-66 14:24:00 Test Item Value Reference Range Interpretation Comments PTT (test code = PTT) 23.5 s 22.9-35.8 [facility] [id number] 16:31:00Surgical Pathology Report Case: [id number] Authorizing Provider: Og Carrillo MD Collected: 03/25/2018 1132 Ordering Location: [facility] PERI[facility] Received: 03/25/2018 1212 SERVICES Pathologist: Savannah Jordan MD Specimen: Gallbladder GALLBLADDER,LAPAROSCOPIC CHOLECYSTECTOMY: - CHRONIC CHOLECYSTITIS - CHOLELITHIASIS - CHOLESTEROLOSIS - CYSTIC DUCT MARGIN, UNREMARKABLE - NO DYSPLA JACKY OR MALIGNANCY SEEN Signing Pathologist Direct Phone Line: [phone] signed by aSvannah Jordan MD on 03/28/2018 at 4:31 [id number], acute pancreatitis Gallbladder Received fresh labeled "gallbladder" is a 6.0 x 3.3 x 1.0 cm focally disrupted gallbladder. The serosalsurface is purple-lai and exhibits cautery artifact on the hepatic surface. The lumen contains yellow-green to mucoid bile and multiple irregular, yellow-green multifaceted calculi ranging in size from0.3 cm to 0.7 cm in greatest dimension. The mucosal surface is yellow-green to red, velvety and glistening and exhibits yellow-gold stippling. The wall measures up to 0.2 cm in maximum thickness.Section code: A1, parallel cystic duct resection margin; A2, inside outside sales representative sections of gallbladder. DB/ew [id number] 14:14:00 Test Item Value Reference Range Interpretation Comments D-DIMER QUANTITATIVE (BEAKER) 4.68 MG/L FEU <0.50 H (test code = 671) Intended Use: The D-Dimer Assay can be used to aid in the diagnosis of Deep Vein Thrombosis (DVT) and Pulmonary Embolism Disease (PED).In patients with low pre- test probability, various studies concerning STA Liatest D-dimer test have reported that with a cutoff value of 0.50 MG/L FEU, the Negative Predictive Value (NPV) regarding the exclusion of thrombosis is within 95-100% range.RAD, CHEST, 1 VIEW, NON [id number] 13:55:00Reason for exam:->chfpending dischargeShould this be performed at the bedside?->YesFINAL REPORT History: Congestive heart failure Comparison: None Findings: There is left lower lobe airspace consolidation obscuring the left diaphragm, concerning for left lower lobe pneumonia or atelectasis. A small left pleural effusion may be present. Right lung clear. No rightpleural effusion. No pneumothorax. Cardiac shadow normal in size. Degenerative changes are present in the spine. IMPRESSION: Left lower lobe atelectasis versus pneumonia. Signed: Alexander Zamora MDReport Verified Date/Time: 03/26/2018 13:55:07 Reading Location: [address] Transitional Reading Room B-TYPE NATRIURETIC FACTOR (BNP)2018-03-26 11:45:00 Test Item Value Reference Range Interpretation Comments B-TYPE NATRIURETIC PEPTIDE (BEAKER) 197 pg/mL 0-100 H (test code = 700) CBC W/PLT COUNT & AUTO [id number] 07:02:00 Test Item Value Reference Range Interpretation Comments WHITE BLOOD CELL COUNT (BEAKER) 14.0 K/ L 3.5-10.5 H (test code = 775) RED BLOOD CELL COUNT (BEAKER) 3.93 M/ L 3.93-5.22 (test code = 761) HEMOGLOBIN (BEAKER) (test code = 10.9 GM/DL 11.2-15.7 L 410) HEMATOCRIT (BEAKER) (test code = 34.1 % 34.1-44.9 411) MEAN CORPUSCULAR VOLUME (BEAKER) 86.8 fL 79.4-94.8 (test code = 753) MEAN CORPUSCULAR HEMOGLOBIN 27.7 pg 25.6-32.2 (BEAKER) (test code = 751) MEAN CORPUSCULAR HEMOGLOBIN CONC 32.0 GM/DL 32.2-35.5 L (BEAKER) (test code = 752) RED CELL DISTRIBUTION WIDTH 14.3 % 11.7-14.4 (BEAKER) (test code = 412) PLATELET COUNT (BEAKER) (test 288 K/CU MM 150-450 code = 756) MEAN PLATELET VOLUME (BEAKER) 11.7 fL 9.4-12.3 (test code = 754) NUCLEATED RED BLOOD CELLS 0 /100 WBC 0-0 (BEAKER) (test code = 413) NEUTROPHILS RELATIVE PERCENT 88 % (BEAKER) (test code = 429) LYMPHOCYTES RELATIVE PERCENT 6 % (BEAKER) (test code = 430) MONOCYTES RELATIVE PERCENT 5 % (BEAKER) (test code = 431) EOSINOPHILS RELATIVE PERCENT 0 % (BEAKER) (test code = 432) BASOPHILS RELATIVE PERCENT 0 % (BEAKER) (test code = 437) NEUTROPHILS ABSOLUTE COUNT 12.26 K/ L 1.56-6.13 H (BEAKER) (test code = 670) LYMPHOCYTES ABSOLUTE COUNT 0.80 K/ L 1.18-3.74 L (BEAKER) (test code = 414) MONOCYTES ABSOLUTE COUNT (BEAKER) 0.69 K/ L 0.24-0.36 H (test code = 415) EOSINOPHILS ABSOLUTE COUNT 0.00 K/ L 0.04-0.36 L (BEAKER) (test code = 416) BASOPHILS ABSOLUTE COUNT (BEAKER) 0.03 K/ L 0.01-0.08 (test code = 417) IMMATURE GRANULOCYTES-RELATIVE 2 % 0-1 H PERCENT (BEAKER) (test code = 2801) CBC W/PLT COUNT & AUTO [id number] 10:46:00 Test Item Value Reference Range Interpretation Comments WHITE BLOOD CELL COUNT (BEAKER) 19.3 K/ L 3.5-10.5 H (test code = 775) RED BLOOD CELL COUNT (BEAKER) 3.81 M/ L 3.93-5.22 L (test code = 761) HEMOGLOBIN (BEAKER) (test code = 11.0 GM/DL 11.2-15.7 L 410) HEMATOCRIT (BEAKER) (test code = 33.1 % 34.1-44.9 L 411) MEAN CORPUSCULAR VOLUME (BEAKER) 86.9 fL 79.4-94.8 (test code = 753) MEAN CORPUSCULAR HEMOGLOBIN 28.9 pg 25.6-32.2 (BEAKER) (test code = 751) MEAN CORPUSCULAR HEMOGLOBIN CONC 33.2 GM/DL 32.2-35.5 (BEAKER) (test code = 752) RED CELL DISTRIBUTION WIDTH 14.3 % 11.7-14.4 (BEAKER) (test code = 412) PLATELET COUNT (BEAKER) (test 239 K/CU MM 150-450 code = 756) MEAN PLATELET VOLUME (BEAKER) 11.6 fL 9.4-12.3 (test code = 754) NUCLEATED RED BLOOD CELLS 0 /100 WBC 0-0 (BEAKER) (test code = 413) (CELLAVISION MANUAL DIFF)2018-03-25 10:46:00 Test Item Value Reference Range Interpretation Comments NEUTROPHILS - REL 81 % (CELLAVISION)(BEAKER) (test code = 2816) LYMPHOCYTES - REL 2 % (CELLAVISION)(BEAKER) (test code = 2817) MONOCYTES - REL 5 % (CELLAVISION)(BEAKER) (test code = 2818) BANDS - REL (CELLAVISION)(BEAKER) 12 % 0-10 H (test code = 2826) NEUTROPHILS - ABS 15.63 K/ul 1.56-6.13 H (CELLAVISION)(BEAKER) (test code = 2830) LYMPHOCYTES - ABS 0.39 K/ul 1.18-3.74 L (CELLAVISION)(BEAKER) (test code = 2831) MONOCYTES - ABS 0.97 K/uL 0.24-0.36 H (CELLAVISION)(BEAKER) (test code = 2832) BANDS - ABS (CELLAVISION)(BEAKER) 2.32 K/uL 0.00-0.80 H (test code = 2840) TOTAL COUNTED (BEAKER) (test code 100 = 1351) WBC MORPHOLOGY (BEAKER) (test code Normal = 487) PLT MORPHOLOGY (BEAKER) (test code Normal = 486) POLYCHROMATOPHILLIC RBCS(BEAKER) 1+ few (test code = 478) ANISOCYTOSIS (BEAKER) (test code = 1+ few 961) ARTIFACT (CELLAVISION)(BEAKER) Present (test code = 3432) PLATELET CONCENTRATION Adequate (CELLAVISION)(BEAKER) (test code = 3438) Received comment: User comments: Slide comments: SCREEN, URINE 2018-03-25 09:26:00 Test Item Value Reference Range Interpretation Comments TEST URINE (BEAKER) (test Negative code = 583) [id number] 08:10:00 Test Item Value Reference Range Interpretation Comments PHOSPHORUS (BEAKER) (test code = 1.7 mg/dL 2.3-4.7 L 604) [id number] 08:10:00 Test Item Value Reference Range Interpretation Comments MAGNESIUM (BEAKER) (test code = 1.7 mg/dL 1.6-2.6 627) COMPREHENSIVE METABOLIC [id number] 08:10:00 Test Item Value Reference Range Interpretation Comments TOTAL PROTEIN 5.6 gm/dL 6.0-8.3 L (BEAKER) (test code = 770) ALBUMIN (BEAKER) 2.8 g/dL 3.5-5.0 L (test code = 1145) ALKALINE PHOSPHATASE 154 U/L 40-150 H (BEAKER) (test code = 346) BILIRUBIN TOTAL 0.5 mg/dL 0.2-1.2 (BEAKER) (test code = 377) SODIUM (BEAKER) (test 135 meq/L 136-145 L code = 381) POTASSIUM (BEAKER) 3.1 meq/L 3.5-5.1 L (test code = 379) CHLORIDE (BEAKER) 100 meq/L 98-107 (test code = 382) CO2 (BEAKER) (test 29 meq/L 22-29 code = 355) BLOOD UREA NITROGEN 7 mg/dL 7-21 (BEAKER) (test code = 354) CREATININE (BEAKER) 0.58 mg/dL 0.57-1.25 (test code = 358) GLUCOSE RANDOM 116 mg/dL 70-105 H (BEAKER) (test code = 652) CALCIUM (BEAKER) 8.1 mg/dL 8.4-10.2 L (test code = 697) AST (SGOT) (BEAKER) 14 U/L 5-34 (test code = 353) ALT (SGPT) (BEAKER) 38 U/L 6-55 (test code = 347) EGFR (BEAKER) (test 110 ESTIMATE D GFR IS code = 1092) mL/min/1.73 sq NOT ACCURA TE m CREATININE CLEARANCE IN PREDICTING GLOMERULAR FILTRATION RATE . ESTIMATED GFR I S NOT APPLICABLE FOR DIALYSIS PATIEN TS. [id number] 05:44:00 Test Item Value Reference Range Interpretation Comments MAGNESIUM (BEAKER) 1.8 mg/dL 1.6-2.6 Specimen slightly (test code = 627) hemolyzed COMPREHENSIVE METABOLIC [id number] 05:44:00 Test Item Value Reference Range Interpretation Comments TOTAL PROTEIN 5.9 gm/dL 6.0-8.3 L Specimen sligh tly (BEAKER) (test code = hemoly zed 770) ALBUMIN (BEAKER) 2.9 g/dL 3.5-5.0 L Specimen sl ightly (test code = 1145) hemolyzed ALKALINE PHOSPHATASE 168 U/L 40-150 H (BEAKER) (test code = 346) BILIRUBIN TOTAL 0.6 mg/dL 0.2-1.2 Specimen sli ghtly (BEAKER) (test code = hemoly zed 377) SODIUM (BEAKER) (test 136 meq/L 136-145 code = 381) POTASSIUM (BEAKER) 3.3 meq/L 3.5-5.1 L Specimen slightly (test code = 379) hemolyzed CHLORIDE (BEAKER) 100 meq/L 98-107 (test code = 382) CO2 (BEAKER) (test 29 meq/L 22-29 code = 355) BLOOD UREA NITROGEN 7 mg/dL 7-21 (BEAKER) (test code = 354) CREATININE (BEAKER) 0.61 mg/dL 0.57-1.25 Specimen slightly (test code = 358) hemolyzed GLUCOSE RANDOM 128 mg/dL 70-105 H (BEAKER) (test code = 652) CALCIUM (BEAKER) 8.4 mg/dL 8.4-10.2 (test code = 697) AST (SGOT) (BEAKER) 18 U/L 5-34 Specimen slightly (test code = 353) hemolyzed ALT (SGPT) (BEAKER) 40 U/L 6-55 Specimen slightly (test code = 347) hemolyzed EGFR (BEAKER) (test 104 ESTIMATE D GFR IS code = 1092) mL/min/1.73 sq NOT ACCURA TE m CREATININE CLEARANCE IN PREDICTING GLOMERULAR FILTRATION RATE . ESTIMATED GFR I S NOT APPLICABLE FOR DIALYSIS PATIEN TS. CBC W/PLT COUNT & AUTO [id number] 11:08:00 Test Item Value Reference Range Interpretation Comments WHITE BLOOD CELL COUNT (BEAKER) 21.7 K/ L 3.5-10.5 H (test code = 775) RED BLOOD CELL COUNT (BEAKER) 4.42 M/ L 3.93-5.22 (test code = 761) HEMOGLOBIN (BEAKER) (test code = 12.6 GM/DL 11.2-15.7 410) HEMATOCRIT (BEAKER) (test code = 39.6 % 34.1-44.9 411) MEAN CORPUSCULAR VOLUME (BEAKER) 89.6 fL 79.4-94.8 (test code = 753) MEAN CORPUSCULAR HEMOGLOBIN 28.5 pg 25.6-32.2 (BEAKER) (test code = 751) MEAN CORPUSCULAR HEMOGLOBIN CONC 31.8 GM/DL 32.2-35.5 L (BEAKER) (test code = 752) RED CELL DISTRIBUTION WIDTH 14.6 % 11.7-14.4 H (BEAKER) (test code = 412) PLATELET COUNT (BEAKER) (test 176 K/CU MM 150-450 code = 756) MEAN PLATELET VOLUME (BEAKER) 11.3 fL 9.4-12.3 (test code = 754) NUCLEATED RED BLOOD CELLS 0 /100 WBC 0-0 (BEAKER) (test code = 413) (CELLAVISION MANUAL DIFF)2018-03-24 11:08:00 Test Item Value Reference Range Interpretation Comments NEUTROPHILS - REL 92 % (CELLAVISION)(BEAKER) (test code = 2816) LYMPHOCYTES - REL 4 % (CELLAVISION)(BEAKER) (test code = 2817) MONOCYTES - REL 4 % (CELLAVISION)(BEAKER) (test code = 2818) NEUTROPHILS - ABS 19.96 K/ul 1.56-6.13 H (CELLAVISION)(BEAKER) (test code = 2830) LYMPHOCYTES - ABS 0.87 K/ul 1.18-3.74 L (CELLAVISION)(BEAKER) (test code = 2831) MONOCYTES - ABS 0.87 K/uL 0.24-0.36 H (CELLAVISION)(BEAKER) (test code = 2832) TOTAL COUNTED (BEAKER) (test code 100 = 1351) RBC MORPHOLOGY (BEAKER) (test code Normal = 762) WBC MORPHOLOGY (BEAKER) (test code Normal = 487) PLT MORPHOLOGY (BEAKER) (test code Normal = 486) LACTIC ACID, VENOUS, WHOLE [id number] 08:43:00 Test Item Value Reference Range Interpretation Comments LACTATE BLOOD VENOUS (2) (BEAKER) 0.6 mmol/L 0.5-2.2 (test code = 2872) Effective 11/06/2015: Units/Reference Range ChangeNew: 0.5-2.2 mmol/L Previous: 5- 20 mg/dLFL, [id number] 07:54:00Reason for exam:->Biliary Pancreatitis FLUOROSCOPIC UNIT UTILIZED-NO INTERPRETATION REQUESTED. [id number] 07:29:00 Test Item Value Reference Range Interpretation Comments PHOSPHORUS (BEAKER) (test code = 1.3 mg/dL 2.3-4.7 LL 604) [id number] 07:12:00 Test Item Value Reference Range Interpretation Comments MAGNESIUM (BEAKER) (test code = 1.9 mg/dL 1.6-2.6 627) COMPREHENSIVE METABOLIC [id number] 07:12:00 Test Item Value Reference Range Interpretation Comments TOTAL PROTEIN 7.0 gm/dL 6.0-8.3 (BEAKER) (test code = 770) ALBUMIN (BEAKER) 3.5 g/dL 3.5-5.0 (test code = 1145) ALKALINE PHOSPHATASE 187 U/L 40-150 H (BEAKER) (test code = 346) BILIRUBIN TOTAL 1.2 mg/dL 0.2-1.2 (BEAKER) (test code = 377) SODIUM (BEAKER) (test 137 meq/L 136-145 code = 381) POTASSIUM (BEAKER) 3.3 meq/L 3.5-5.1 L (test code = 379) CHLORIDE (BEAKER) 102 meq/L 98-107 (test code = 382) CO2 (BEAKER) (test 26 meq/L 22-29 code = 355) BLOOD UREA NITROGEN 9 mg/dL 7-21 (BEAKER) (test code = 354) CREATININE (BEAKER) 0.66 mg/dL 0.57-1.25 (test code = 358) GLUCOSE RANDOM 112 mg/dL 70-105 H (BEAKER) (test code = 652) CALCIUM (BEAKER) 8.7 mg/dL 8.4-10.2 (test code = 697) AST (SGOT) (BEAKER) 27 U/L 5-34 (test code = 353) ALT (SGPT) (BEAKER) 64 U/L 6-55 H (test code = 347) EGFR (BEAKER) (test 95 mL/min/1.73 ESTIMA GUANAKO GFR IS code = 1092) sq m NOT ACCURATE CREATININE CLEARANCE IN PREDICTING GLOMERULAR FILTRATION RATE . ESTIMATED GFR I S NOT APPLICABLE FOR DIALYSIS PATIEN TS. CBC W/PLT COUNT & AUTO [id number] 12:01:00 Test Item Value Reference Range Interpretation Comments WHITE BLOOD CELL COUNT (BEAKER) 20.8 K/ L 3.5-10.5 H (test code = 775) RED BLOOD CELL COUNT (BEAKER) 4.60 M/ L 3.93-5.22 (test code = 761) HEMOGLOBIN (BEAKER) (test code = 13.1 GM/DL 11.2-15.7 410) HEMATOCRIT (BEAKER) (test code = 39.7 % 34.1-44.9 411) MEAN CORPUSCULAR VOLUME (BEAKER) 86.3 fL 79.4-94.8 (test code = 753) MEAN CORPUSCULAR HEMOGLOBIN 28.5 pg 25.6-32.2 (BEAKER) (test code = 751) MEAN CORPUSCULAR HEMOGLOBIN CONC 33.0 GM/DL 32.2-35.5 (BEAKER) (test code = 752) RED CELL DISTRIBUTION WIDTH 14.3 % 11.7-14.4 (BEAKER) (test code = 412) PLATELET COUNT (BEAKER) (test 313 K/CU MM 150-450 code = 756) MEAN PLATELET VOLUME (BEAKER) 11.4 fL 9.4-12.3 (test code = 754) NUCLEATED RED BLOOD CELLS 0 /100 WBC 0-0 (BEAKER) (test code = 413) (CELLAVISION MANUAL DIFF)2018-03-23 12:01:00 Test Item Value Reference Range Interpretation Comments NEUTROPHILS - REL 93 % (CELLAVISION)(BEAKER) (test code = 2816) LYMPHOCYTES - REL 1 % (CELLAVISION)(BEAKER) (test code = 2817) MONOCYTES - REL 4 % (CELLAVISION)(BEAKER) (test code = 2818) BANDS - REL (CELLAVISION)(BEAKER) 2 % 0-10 (test code = 2826) NEUTROPHILS - ABS 19.34 K/ul 1.56-6.13 H (CELLAVISION)(BEAKER) (test code = 2830) LYMPHOCYTES - ABS 0.21 K/ul 1.18-3.74 L (CELLAVISION)(BEAKER) (test code = 2831) MONOCYTES - ABS 0.83 K/uL 0.24-0.36 H (CELLAVISION)(BEAKER) (test code = 2832) BANDS - ABS (CELLAVISION)(BEAKER) 0.42 K/uL 0.00-0.80 (test code = 2840) TOTAL COUNTED (BEAKER) (test code 100 = 1351) SMUDGE CELLS (BEAKER) (test code = Present 1371) GIANT PLATELETS (BEAKER) (test Present code = 313) MICROCYTES (BEAKER) (test code = 1+ few 965) PLATELET CONCENTRATION Adequate (CELLAVISION)(BEAKER) (test code = 3438) Received comment: User comments: Slide comments:[id number] 07:11:00 Test Item Value Reference Range Interpretation Comments PHOSPHORUS (BEAKER) (test code = 1.9 mg/dL 2.3-4.7 L 604) PROTHROMBIN [id number] 06:41:00 Test Item Value Reference Range Interpretation Comments PROTIME (BEAKER) (test code = 14.0 seconds 11.7-14.7 759) INR (BEAKER) (test code = 370) 1.1 <=5.9 RECOMMENDED COUMADIN/WARFARIN INR THERAPY RANGESSTANDARD DOSE: 2.0 - 3.0 Includes: PROPHYLAXIS for venous thrombosis, systemic embolization; TREATMENT for venous thrombosis and/or pulmonary embolus.HIGH RISK: Target INR is 2.5-3.5 for patients with mechanical heart valves.COMPREHENSIVE METABOLIC PANEL 2018-03-23 06:40:00 Test Item Value Reference Range Interpretation Comments TOTAL PROTEIN 6.9 gm/dL 6.0-8.3 (BEAKER) (test code = 770) ALBUMIN (BEAKER) 3.7 g/dL 3.5-5.0 (test code = 1145) ALKALINE PHOSPHATASE 198 U/L 40-150 H (BEAKER) (test code = 346) BILIRUBIN TOTAL 0.8 mg/dL 0.2-1.2 (BEAKER) (test code = 377) SODIUM (BEAKER) (test 140 meq/L 136-145 code = 381) POTASSIUM (BEAKER) 3.3 meq/L 3.5-5.1 L (test code = 379) CHLORIDE (BEAKER) 103 meq/L 98-107 (test code = 382) CO2 (BEAKER) (test 28 meq/L 22-29 code = 355) BLOOD UREA NITROGEN 13 mg/dL 7-21 (BEAKER) (test code = 354) CREATININE (BEAKER) 0.70 mg/dL 0.57-1.25 (test code = 358) GLUCOSE RANDOM 127 mg/dL 70-105 H (BEAKER) (test code = 652) CALCIUM (BEAKER) 8.6 mg/dL 8.4-10.2 (test code = 697) AST (SGOT) (BEAKER) 57 U/L 5-34 H (test code = 353) ALT (SGPT) (BEAKER) 107 U/L 6-55 H (test code = 347) EGFR (BEAKER) (test 89 mL/min/1.73 ESTIMA GUANAKO GFR IS code = 1092) sq m NOT ACCURATE CREATININE CLEARANCE IN PREDICTING GLOMERULAR FILTRATION RATE . ESTIMATED GFR I S NOT APPLICABLE FOR DIALYSIS PATIEN TS. [id number] 06:25:00 Test Item Value Reference Range Interpretation Comments MAGNESIUM (JULIOAKER) (test code = 1.9 mg/dL 1.6-2.6 627)
--- NOTE | 2023-04-30 13:18 | RAD REPORT ---
EXAM DESCRIPTION: CT - Abdomen Pelvis Wo Contrast - 04/30/2023 1:02 pm CLINICAL HISTORY: Abdominal pain COMPARISON: 2018 TECHNIQUE: Computed axial tomography of the abdomen and pelvis was obtained. IV and oral contrast we re not requested. All CT scans are performed using dose optimization technique as appropriate and may include automated exposure control or mA/KV adjustment according to patient size. FINDINGS: The evaluation of solid organs, vessels and bowel is limited secondary to the lack of con trast administration. Cholecystectomy. Spleen, pancreas, adrenals and right kidney unremarkable. 7 millimeter calculus left kidney. No hydronephrosis. Normal appendix. No evidence of diverticulitis. No adnexal mass. Small umbilical hernia. Moderate adjacent periumbilical hernia containing fat IMPRESSION: Nonobstructing left renal calculus
[2023-04-30 13:35] LABS: Absolute Lymphocytes (CBC) 1.7 K/uL (0.7-4.9); Hematocrit 40.6 % (36.0-45.0); Lymphocytes % 30.8 % (15.3-44.8); MCV 82.3 fL (80-100); MPV 9.1 fL (7.6-11.3); Platelets 273 thou/uL (152-406); RBC Red Blood Cell Count 4.93 M/uL (3.86-4.86)
[2023-04-30 13:42] LABS: Albumin 3.6 g/dL (3.4-5.0); Bilirubin Total 0.4 mg/dL (0.2-1.0); Potassium 3.3 mEq/L (3.5-5.1); Protein, Total 7.1 g/dL (6.4-8.2)
[2023-04-30 13:45] LABS: Calcium Oxalate Crystals- Ur Few /HPF (None Seen); Specific Gravity 1.028 (1.005-1.030); Transitional Epithelial <5 /HPF (None Seen); Urine Bacteria >50 /HPF (<20); Urine Bilirubin NEGATIVE (Negative); Urine Blood Trace (Negative); Urine Clarity Extremely Turbid (Clear); Urine Color Yellow (Yellow); Urine Glucose TRACE (Negative); Urine Mucus 1+ /HPF (None Seen); Urine Protein 1+ (Negative); Urine RBC 21-50 /HPF (None Seen); Urine Urobilinogen Normal (Normal)
[2023-04-30] MEDS ORDERED: KETOROLAC 30 MG/ML INJ ONE (15:23)
--- NOTE | 2023-04-30 16:01 | EDPHYS ---
Physician Documentation [facility] Name: Margaux Ruiz Age: 52 yrs Sex: Female : 1970 Arrival Date: 04/30/2023 Time: 11:58 Bed 11 Private MD: ED Physician Fercho Zamudio HPI: 04/30 17:46 This 52 yrs old Female presents to ER via Ambulatory with complaints of Back Pain. rt 17:46 Patient presents to the ED with a right flank pain off and on for several days. States rt pain has worsened today. States that she does get adequate relief with ibuprofen at home. Denies fever, chills, acute complaints. Symptoms are moderate severity, no other aggravating relieving factors.. Historical: - Allergies: 12:22 PENICILLINS; tm6 - PMHx: 12:22 Hypertension; tm6 - PSHx: 12:22 Cholecystectomy; Ligation of fallopian tube; section; tm6 - Immunization history:: Adult Immunizations up to date. - Social history:: Smoking status: Patient denies any tobacco usage or history of. Patient/guardian denies using alcohol. - Family history:: not pertinent. ROS: 17:46 Constitutional: Negative for fever, chills, and weight loss, Cardiovascular: Negative rt for chest pain, palpitations, and edema, Respiratory: Negative for shortness of breath, cough, wheezing, and pleuritic chest pain, Abdomen/GI: Negative for abdominal pain, nausea, vomiting, diarrhea, and constipation, MS/Extremity: Negative for injury and deformity, Skin: Negative for injury, rash, and discoloration, Neuro: Negative for headache, weakness, numbness, tingling, and seizure, 17:46 Back: Positive for flank pain, Negative for injury or acute deformity, Exam: 17:46 Constitutional: This is a well developed, well nourished patient who is awake, alert, rt and in no acute distress. Head/Face: Normocephalic, atraumatic. Chest/axilla: Normal chest wall appearance and motion. Nontender with no deformity. No lesions are appreciated. Cardiovascular: Regular rate and rhythm with a normal S1 and S2. No gallops, murmurs, or rubs. Normal PMI, no JVD. No pulse deficits. Respiratory: Lungs have equal breath sounds bilaterally, clear to auscultation and percussion. No rales, rhonchi or wheezes noted. No increased work of breathing, no retractions or nasal flaring. Abdomen/GI: Soft, non-tender, with normal bowel sounds. No distension or tympany. No guarding or rebound. No evidence of tenderness throughout. Back: No spinal tenderness. No costovertebral tenderness. Full range of motion. Skin: Warm, dry with normal turgor. Normal color with no rashes, no lesions, and no evidence of cellulitis. MS/ Extremity: Pulses equal, no cyanosis. Neurovascular intact. Full, normal range of motion. Neuro: Awake and alert, GCS 15, oriented to person, place, time, and situation. Cranial nerves II-XII grossly intact. Motor strength 5/5 in all extremities. Sensory grossly intact. Cerebellar exam normal. Normal gait. Vital Signs: 12:20 BP 174 / 86; Pulse 94; Resp 18; Temp 97.5(TE); Pulse Ox 100% on R/A; Weight 95.71 kg; tm6 Height 5 ft. 2 in. ; Pain 0/10; 15:16 BP 160 / 83; Pulse 61; Resp 16; Pulse Ox 100% on R/A; kd3 16:23 BP 160 / 79; Pulse 65; Resp 16; Pulse Ox 99% ; kd3 12:20 Body Mass Index 38.59 (95.71 kg, 157.48 cm) tm6 12:20 Pain Scale: Adult tm6 MDM: 12:25 Patient medically screened. rt 17:48 Differential diagnosis: Kidney stone, pyelonephritis, mechanical back pain. Data rt reviewed: vital signs, nurses notes, lab test result(s), radiologic studies. Consideration of Admission/Observation Escalation of care including admission/observation considered. Possibly contaminated urine sample, will treat for pyelonephritis anyway. The kidney stone identified is not the ureter, not obstructed in his contralateral where the patient's pain is. Do not believe the patient has a septic kidney stone. Labs are benign, patient is afebrile. Informed patient of this, instructed her to come back if she develops any worsening symptoms or new concerning symptoms.. I considered the following discharge prescriptions or medication management in the emergency department Medications were administered in the Emergency Department. See MAR. Independent interpretation of the following test(s) in the Emergency Department CT Scan: My interpretation is No ureteral stone seen on interpretation of CT scan images. Counseling: I had a detailed discussion with the patient and/or guardian regarding the historical points, exam findings, and any diagnostic results supporting the discharge/admit diagnosis, lab results, radiology results, the need for outpatient follow up. Response to treatment: the patient's symptoms have markedly improved after treatment. 04/30 12:26 Order name: CBC with Diff; Complete Time: 14:10 rt 04/30 12:26 Order name: CMP; Complete Time: 14:10 rt 04/30 12:26 Order name: UAM; Complete Time: 14:10 rt 04/30 13:49 Order name: Urine Culture EDMS 04/30 12:26 Order name: CT Abd/Pelvis - Without Contrast; Complete Time: 14:10 rt Administered Medications: 15:16 Drug: Ketorolac IVP 30 mg IVP once Route: IVP; Site: left antecubital; kd3 16:23 Follow up: Response: No adverse reaction; Pain is decreased kd3 16:17 Drug: Rocephin - Rocephin (cefTRIAXone) IVPB 2 grams IVPB once over 30 mins; (mix in kd3 100 mL NS) Route: IVPB; Infused Over: 30 mins; Site: right antecubital; 16:17 Follow up: IV Status: Completed infusion kd3 Disposition Summary: 04/30/23 16:00 Discharge Ordered Notes: Location: Home rt Problem: new rt Symptoms: have improved rt Condition: Stable rt Diagnosis - Right flank pain rt - Nephrolithiasis rt - UTI rt Followup: rt - With: David Crockett MD - When: 2 - 3 days - Reason: Discharge Instructions: - Discharge Summary Sheet rt - Flank Pain, Adult rt - Kidney Stones rt Forms: - Medication Reconciliation Form rt - Thank You Letter rt - Antibiotic Education rt - Prescription Opioid Use rt - Patient Portal Instructions rt - Leadership Thank You Letter rt Signatures: Dispatcher [employer] Deann Holley RN RN [id number] Fercho Zamudio MD MD rt Geremias Angel RN RN tm6
--- NOTE | 2023-04-30 16:01 | ER ---
Nurse's Notes [facility] Name: Margaux Ruiz Age: 52 yrs Sex: Female : 1970 Arrival Date: 04/30/2023 Time: 11:58 Bed 11 Private MD: Diagnosis: Right flank pain;Nephrolithiasis;UTI Presentation: 04/30 12:20 Chief complaint: Patient states: intermittent right upper back pain 02/11. Coronavirus tm6 screen: Client denies travel out of the [place] in the last 14 days. Client indicates they have traveled out of the [place] in the last 14 days. At this time, unable to obtain information related to travel outside the [place] Ebola Screen: Patient negative for fever greater than or equal to 101.5 degrees Fahrenheit, and additional compatible Ebola Virus Disease symptoms Patient denies exposure to infectious person. Patient denies travel to an Ebola-affected area in the 21 days before illness onset. No symptoms or risks identified at this time. Initial Sepsis Screen: Does the patient meet any 2 criteria? No. Patient's initial sepsis screen is negative. Does the patient have a suspected source of infection? No. Patient's initial sepsis screen is negative. Risk Assessment: Do you want to hurt yourself or someone else? Patient reports no desire to harm self or others. Onset of symptoms was April 23, 2024. 12:20 Method Of Arrival: Ambulatory tm6 12:20 Acuity: ROSA 3 tm6 Triage Assessment: 12:22 General: Appears in no apparent distress. uncomfortable, Behavior is calm, cooperative, tm6 appropriate for age. Pain: Complains of pain in right low back. Pain: Pain does not radiate. EENT: Neuro: Level of Consciousness is awake, alert, obeys commands, Oriented to person, place, time, situation, Appropriate for age. Respiratory: Airway is patent Respiratory effort is even, unlabored, Respiratory pattern is regular, symmetrical. Musculoskeletal: Capillary refill < 3 seconds. Historical: - Allergies: 12:22 PENICILLINS; tm6 - PMHx: 12:22 Hypertension; tm6 - PSHx: 12:22 Cholecystectomy; Ligation of fallopian tube; section; tm6 - Immunization history:: Adult Immunizations up to date. - Social history:: Smoking status: Patient denies any tobacco usage or history of. Patient/guardian denies using alcohol. - Family history:: not pertinent. Screenin:17 [facility] ED Fall Risk Assessment (Adult) History of falling in the last 3 months, kd3 including since admission No falls in past 3 months (0 pts) Confusion or Disorientation No (0 pts) Intoxicated or Sedated No (0 pts) Impaired Gait No (0 pts) Mobility Assist Device Used No (0 pt) Altered Elimination No (0 pt) Score/Fall Risk Level 0 - 2 = Low Risk Oriented to surroundings, Maintained a safe environment, Educated pt \T\ family on fall prevention, incl call for assistance when getting out of bed. Abuse screen: Denies threats or abuse. Denies injuries from another. Nutritional screening: No deficits noted. Tuberculosis screening: No symptoms or risk factors identified. Assessment: 15:16 General: Appears in no apparent distress. Behavior is calm, cooperative. Pain: kd3 Complains of pain in right low back. Neuro: Level of Consciousness is awake, alert, obeys commands, Oriented to person, place, time, situation. Respiratory: Airway is patent Trachea midline Respiratory effort is even, unlabored, Respiratory pattern is regular, symmetrical. 16:17 General: Appears in no apparent distress. Behavior is calm, cooperative. Neuro: Level kd3 of Consciousness is awake, alert, obeys commands, Oriented to person, place, time, situation. Vital Signs: 12:20 BP 174 / 86; Pulse 94; Resp 18; Temp 97.5(TE); Pulse Ox 100% on R/A; Weight 95.71 kg; tm6 Height 5 ft. 2 in. ; Pain 0/10; 15:16 BP 160 / 83; Pulse 61; Resp 16; Pulse Ox 100% on R/A; kd3 16:23 BP 160 / 79; Pulse 65; Resp 16; Pulse Ox 99% ; kd3 12:20 Body Mass Index 38.59 (95.71 kg, 157.48 cm) tm6 12:20 Pain Scale: Adult tm6 ED Course: 12:00 Patient arrived in ED. ts1 12:06 Fercho Zamudio MD is Attending Physician. rt 12:22 Triage completed. tm6 12:24 Arm band placed on right wrist. tm6 12:48 CMP Sent. bc6 12:48 CBC with Diff Sent. bc6 12:48 [facility] Sent. bc6 13:04 CT Abd/Pelvis - Without Contrast In Process Unspecified. EDMS 15:16 Deann Irvin, RN is Primary Nurse. kd3 16:00 David Crockett MD is Referral Physician. rt 16:18 Patient has correct armband on for positive identification. Provided Education on: UTI. kd3 16:18 No provider procedures requiring assistance completed. IV discontinued, intact, kd3 bleeding controlled, No redness/swelling at site. Pressure dressing applied. Administered Medications: 15:16 Drug: Ketorolac IVP 30 mg IVP once Route: IVP; Site: left antecubital; kd3 16:23 Follow up: Response: No adverse reaction; Pain is decreased kd3 16:17 Drug: Rocephin - Rocephin (cefTRIAXone) IVPB 2 grams IVPB once over 30 mins; (mix in kd3 100 mL NS) Route: IVPB; Infused Over: 30 mins; Site: right antecubital; 16:17 Follow up: IV Status: Completed infusion kd3 Medication: 16:23 VIS not applicable for this client. kd3 Outcome: 16:00 Discharge ordered by . rt 16:18 Discharged to home ambulatory, kd3 16:18 Condition: stable 16:18 Discharge instructions given to patient, Instructed on discharge instructions, follow up and referral plans. Demonstrated understanding of instructions, follow-up care, 16:24 Patient left the ED. kd3 Signatures: Dispatcher [employer] EDMS Deann Irvin, RN RN kd3 Fercho Zamudio MD MD rt Kristin Ward bc6 Carla Wolf PAS PAS ts1 Geremias Angel RN RN tm6
[2023-04-30] MEDS ORDERED: CEFTRIAXONE 1000 MG/VIAL ONE (16:22)
[2023-04-30 17:15] VITALS: TEMP 97.5
[2023-04-30 17:18] VITALS: BP 160/79; O2SAT 99
== END 2023-04-30 16:24 | disposition home or self-care (01) ==
LOC: ER 11:58
DX: N39.0 Urinary tract infection, site not specified (principal); N20.0 Calculus of kidney; I10 Essential (primary) hypertension; Z90.49 Acquired absence of other specified parts of digestive tract; Z88.0 Allergy status to penicillin
CPT/HCPCS: 36415; 74176; 80053; 81001; 85025; 87086; 87088; 99284; J0696